=== PATIENT | male | born 1950 | race Caucasian/White ===

== ENCOUNTER 2021-02-10 09:30 | Inpatient (IN) | payer OTHER ==
[~2021-02-10] VITALS: Ht 172.7 cm; Wt 100.7 kg
[2021-02-10] MEDS ORDERED: COZAAR100 MG PO (15:12)
[2021-02-10] MEDS ORDERED: ADULT ASPIRIN81 MG PO (15:13)
[2021-02-10] MEDS ORDERED: FAMO PO (15:14)
[2021-02-10] MEDS ORDERED: AMLO PO (15:14)
[2021-02-10] MEDS ORDERED: TAMS0.4C PO (15:15)
[2021-02-10] MEDS ORDERED: ACID REDUCER20 M1 PO (15:15)
[2021-02-10] MEDS ORDERED: GRALISE600 MG PO (15:15)
[2021-02-10] MEDS ORDERED: FORTAMET500 MG PO (15:16)
[2021-02-10] MEDS ORDERED: ATORVASTATIN CA40 MG PO (15:16)
[2021-02-15] MEDS ORDERED: AMLODIPINE BESYL5 MG (08:30)
[2021-02-15] MEDS ORDERED: FLONASE16 GM (08:31)
[2021-02-15] MEDS ORDERED: FUROSEMIDE20 MG (08:31)
[2021-02-15] MEDS ORDERED: LORATADINE10 MG (08:31)
[2021-02-15] MEDS ORDERED: FAMOTIDINE40 MG (08:31)
[2021-02-15] MEDS ORDERED: MAXIMUM D3325 MCG (08:31)
[2021-02-15] MEDS ORDERED: OMEPRAZOLE20 MG (08:31)
[2021-02-15] MEDS ORDERED: PANTOPRAZOLE SO40 MG (08:32)
[2021-02-15] MEDS ORDERED: OLOPATADINE HC2.5 ML (08:32)
[2021-02-15] MEDS ORDERED: BRILINTA90 MG (08:32)
== END 2021-02-16 12:05 | disposition home or self-care (01) | DRG 627 ==
LOC: O/R 02-15 05:45 → SURH 02-15 05:45
PROVIDERS: ADMIT Surgery; ATTEND Surgery
PROC: 0GBR0ZZ Excision of Parathyroid Gland, Open Approach (ICD-10-PCS; principal; 2021-02-15 07:00)
DX: E21.0 Primary hyperparathyroidism (principal); Z20.822 Contact with and (suspected) exposure to COVID-19